=== PATIENT | male | born 1970 ===

== ENCOUNTER → 2022-10-20 09:24 | Outpatient (CLI) | payer OTHER, SELFPAY ==
--- NOTE | ~2022-10-20 | CT_ITS ---
CT of the Abdomen and Pelvis: Indication: Abdominal pain Technique: 2.5 mm axial scans were obtained through the abdomen and pelvis following intravenous adm inistration of 100 cc of Omnipaque 350. Dose reduction technique was used on this scan by utilizing a utomated exposure control and iterative reconstruction technique. The dose-length product (DLP) was 7 15.91 mGy-cm. Findings: Scans through the lung bases are unremarkable. The liver, spleen, pancreas, gallbladder, adrenals and kidneys are within normal limits. No evidence of aortic aneurysm. No lymphadenopathy. There is diffuse wall thickening of the large bowel with minimal pericolonic inflammatory stranding, especially at the transverse colon. No bowel obstruction. No abscess or free air. Images through the pelvis were performed. Urinary bladder unremarkable. Prostate gland and seminal ve sicles are unremarkable. No ascites. Impression: Findings compatible with infectious/inflammatory pancolitis. No abscess or free air. No bowel obstruc tion. Reviewed, dictated and finalized at location . Impression: Findings compatible with infectious/inflammatory pancolitis. No abscess or free air. No bowel obstruction.
== END ==
DX: R10.9 Unspecified abdominal pain (principal)
CPT/HCPCS: 74177; Q9967